=== PATIENT | male | born 1945 | race Caucasian/White ===

== ENCOUNTER 2016-12-21 20:01 | Inpatient (IN) | payer OTHER, MEDICARE ==
[~2016-12-21] VITALS: Ht 182.9 cm; Wt 68.5 kg
[2016-12-21 20:29] LABS: HEMATOCRIT 28.3 % (38.0-50.0); MCH 24.5 PG (29.0-34.0); MCHC 30.7 G/DL (30.0-36.0); MCV 79.7 FL (86-99); MEAN PLAT.VOLUME 8.7 uM^3 (9.0-12.4); PLATELET COUNT 479 K/uL (156-360); RBC DIS.WIDTH-CV 15.8 % (11.8-14.6); RBC DIS.WIDTH-SD 45.9 % (39-53); RED BLOOD COUNT 3.55 M/uL (4.00-5.50); WHITE BLOOD COUNT 10.9 K/uL (4.1-10.2)
[2016-12-21 20:38] LABS: CHLORIDE 101 mEq/L (99-109); POTASSIUM 4.1 mEq/L (3.7-5.4); SODIUM 134 mEq/L (136-147)
[2016-12-21 20:40] LABS: GLUCOSE 108 mg/dL (70-99)
[2016-12-21 20:41] LABS: ANION GAP 10 MEQ/L (2-14)
[2016-12-21 20:44] LABS: GFR ESTIMATE (CALCULATED) > 59 mL/min/
[2016-12-21 20:45] LABS: UREA NITROGEN (BUN) 9 mg/dL (9-23)
[2016-12-21 20:51] LABS: TROP-I INTERPRETATION NEGATIVE; TROPONIN-I < 0.01 ng/mL (0.0-0.30)
[2016-12-21] MEDS ORDERED: OXYCODONE HCL5 MG PO (21:01)
[2016-12-21] MEDS ORDERED: LOPRESSOR50 MG PO (21:01)
[2016-12-22] VITALS (9 sets, daily range): BP systolic 88–121; BP diastolic 52–68
[2016-12-22 02:18] LABS: HEMATOCRIT 25.1 % (38.0-50.0); MCV 81.2 FL (86-99)
[2016-12-22 02:33] LABS: CHLORIDE 103 mEq/L (99-109); POTASSIUM 4.1 mEq/L (3.7-5.4); SODIUM 133 mEq/L (136-147)
[2016-12-22 02:36] LABS: GLUCOSE 102 mg/dL (70-99)
[2016-12-22 02:37] LABS: ANION GAP 6 MEQ/L (2-14); TOTAL BILIRUBIN 0.3 mg/dL (0.0-1.0)
[2016-12-22 02:39] LABS: ALKALINE PHOSPHATASE 108 IU/L (3-129); GFR ESTIMATE (CALCULATED) > 59 mL/min/
[2016-12-22 02:40] LABS: UREA NITROGEN (BUN) 8 mg/dL (9-23)
[2016-12-22 02:42] LABS: TROP-I INTERPRETATION NEGATIVE; TROPONIN-I < 0.01 ng/mL (0.0-0.30)
[2016-12-22 04:26] LABS: IRON 11 MCG/DL (35-150)
[2016-12-22 08:00] LABS: FERRITIN 311 NG/ML (22-322)
[2016-12-22 08:57] LABS: HEMATOCRIT 25.6 % (38.0-50.0); MCV 81.8 FL (86-99)
[2016-12-22 10:03] LABS: TROP-I INTERPRETATION NEGATIVE; TROPONIN-I < 0.01 ng/mL (0.0-0.30)
[2016-12-23] VITALS (12 sets, daily range): BP systolic 102–137; BP diastolic 55–78
[2016-12-23 05:49] LABS: BASOPHIL COUNT 0.1 K/uL (0-0.1); EOSINOPHIL COUNT 0.1 K/uL (0-0.3); HEMATOCRIT 25.7 % (38.0-50.0); IMMATURE GRANULOCYTE (%) 0.8 % (0.0-0.7); IMMATURE GRANULOCYTE COUNT 0.1 K/uL; LYMPHOCYTE COUNT 1.1 K/uL (1.0-2.8); MCH 25.2 PG (29.0-34.0); MCHC 30.7 G/DL (30.0-36.0); MCV 81.8 FL (86-99); MEAN PLAT.VOLUME 8.9 uM^3 (9.0-12.4); MONOCYTE (%) 7.5 % (3-12); MONOCYTE COUNT 0.6 K/uL (0-0.8); NEUTROPHIL (%) 76.5 % (45-76); PLATELET COUNT 433 K/uL (156-360); RBC DIS.WIDTH-CV 15.9 % (11.8-14.6); RBC DIS.WIDTH-SD 47.8 % (39-53); RED BLOOD COUNT 3.14 M/uL (4.00-5.50); WHITE BLOOD COUNT 7.9 K/uL (4.1-10.2)
[2016-12-23 06:12] LABS: ANION GAP 6 MEQ/L (2-14); CHLORIDE 103 MEQ/L (99-109); GFR ESTIMATE (CALCULATED) > 59 mL/min/; GLUCOSE 86 mg/dL (70-99); SAMPLE HEMOLYSIS CHECK 0; SAMPLE ICTERIC CHECK 0; SAMPLE LIPEMIA CHECK 0; SODIUM 133 MEQ/L (136-147); UREA NITROGEN (BUN) 6 mg/dL (9-23)
[2016-12-23 21:28] LABS: HEMATOCRIT 29.6 % (38.0-50.0); MCH 24.4 PG (29.0-34.0); MCHC 30.4 G/DL (30.0-36.0); MCV 80.2 FL (86-99); MEAN PLAT.VOLUME 8.4 uM^3 (9.0-12.4); PLATELET COUNT 471 K/uL (156-360); RBC DIS.WIDTH-CV 15.7 % (11.8-14.6); RBC DIS.WIDTH-SD 45.4 % (39-53); RED BLOOD COUNT 3.69 M/uL (4.00-5.50); WHITE BLOOD COUNT 8.7 K/uL (4.1-10.2)
[2016-12-23 21:41] LABS: ANION GAP 10 MEQ/L (2-14); CHLORIDE 101 MEQ/L (99-109); POTASSIUM 3.8 MEQ/L (3.7-5.4); SAMPLE HEMOLYSIS CHECK 0; SAMPLE ICTERIC CHECK 0; SAMPLE LIPEMIA CHECK 0; SODIUM 132 MEQ/L (136-147)
[2016-12-23 21:47] LABS: ALKALINE PHOSPHATASE 105 IU/L (3-129); GFR ESTIMATE (CALCULATED) > 59 mL/min/; GLUCOSE 99 mg/dL (70-99); UREA NITROGEN (BUN) 4 mg/dL (9-23)
[2016-12-23 21:48] LABS: TOTAL BILIRUBIN 0.3 MG/DL (0.0-1.0)
[2016-12-23 21:49] LABS: TROP-I INTERPRETATION NEGATIVE; TROPONIN-I < 0.01 ng/mL (0.0-0.30)
[2016-12-23 21:53] LABS: INTER. NORMALIZED RATIO 1.1; PROTHROMBIN TIME 12.1 SEC (10.2-12.9)
[2016-12-23 21:55] LABS: PTT 35.5 SEC (25-37)
[2016-12-24] VITALS (15 sets, daily range): BP systolic 96–122; BP diastolic 55–74
[2016-12-24 05:58] LABS: BASOPHIL COUNT 0.1 K/uL (0-0.1); EOSINOPHIL (%) 1.4 % (0-5); EOSINOPHIL COUNT 0.1 K/uL (0-0.3); IMMATURE GRANULOCYTE (%) 0.7 % (0.0-0.7); IMMATURE GRANULOCYTE COUNT 0.1 K/uL; INSTRUMENT ABS NEUTROPHIL CT 5.4 K/uL; LYMPHOCYTE COUNT 1.1 K/uL (1.0-2.8); MCH 24.2 PG (29.0-34.0); MCV 80.7 FL (86-99); MEAN PLAT.VOLUME 9.1 uM^3 (9.0-12.4); MONOCYTE COUNT 0.6 K/uL (0-0.8); NEUTROPHIL COUNT 5.4 K/uL (1.8-6.4); PLATELET COUNT 457 K/uL (156-360); RBC DIS.WIDTH-CV 15.9 % (11.8-14.6); RBC DIS.WIDTH-SD 47.3 % (39-53); RED BLOOD COUNT 3.22 M/uL (4.00-5.50); WHITE BLOOD COUNT 7.3 K/uL (4.1-10.2)
[2016-12-24 23:16] LABS: TROP-I INTERPRETATION NEGATIVE; TROPONIN-I < 0.01 ng/mL (0.0-0.30)
[2016-12-25 03:08] VITALS: BP 96/58
[2016-12-25 06:17] LABS: HEMATOCRIT 28.9 % (38.0-50.0); MCH 25.4 PG (29.0-34.0); MCHC 31.8 G/DL (30.0-36.0); MCV 79.8 FL (86-99); MEAN PLAT.VOLUME 8.3 uM^3 (9.0-12.4); PLATELET COUNT 389 K/uL (156-360); RBC DIS.WIDTH-CV 15.6 % (11.8-14.6); RBC DIS.WIDTH-SD 45.5 % (39-53); RED BLOOD COUNT 3.62 M/uL (4.00-5.50); WHITE BLOOD COUNT 6.7 K/uL (4.1-10.2)
[2016-12-25 07:29] VITALS: BP 118/63
[2016-12-25 11:28] VITALS: BP 133/63
[2016-12-25] MEDS ORDERED: LOPRESSOR50 MG PO (11:41)
[2016-12-25] MEDS ORDERED: ASPIRIN EC325 MG PO (11:41)
[2016-12-25] MEDS ORDERED: DOCUSATE SODIU100 MG PO (11:42)
== END 2016-12-25 13:59 | disposition home or self-care (01) | DRG 308 ==
LOC: EME → EDBD 20:01 → 4EAST 21:57 → EDOF 21:57 → ENRESERV 21:59 → 4EAST 12-22 00:02 → ENRESERV 12-25 00:51 → CANRESERV 12-25 00:51 → 4EAST 12-25 13:59
PROVIDERS: Emergency Medicine; Hospitalist; Internal Medicine
DX: I48.0 Paroxysmal atrial fibrillation (principal); I26.99 Other pulmonary embolism without acute cor pulmonale; J44.9 Chronic obstructive pulmonary disease, unspecified; C34.12 Malignant neoplasm of upper lobe, left bronchus or lung; D50.9 Iron deficiency anemia, unspecified; K21.9 Gastro-esophageal reflux disease without esophagitis; F17.210 Nicotine dependence, cigarettes, uncomplicated; D64.9 Anemia, unspecified; R49.0 Dysphonia; R91.8 Other nonspecific abnormal finding of lung field; R07.89 Other chest pain; Z92.3 Personal history of irradiation; Z92.21 Personal history of antineoplastic chemotherapy
CPT/HCPCS: 36415; 71010; 71020; 71275; 77290; 77307; 77334; 77412; 77417; 80048; 80053; 82728; 83540; 83615; 83880; 84443; 84466; 84484; 85014; 85018; 85025; 85027; 85379; 85610; 85730; 86900; 86901; 86920; 93005; 93306; 94799; 99281; 99285; J1644; J2270; J2405; J3475; J7030; J7040; J7050; P9016; Q0138; S0028